=== PATIENT | female | born 1980 | race Native Hawaiian/Other Pacific Islander ===

== ENCOUNTER 2017-06-30 16:44 | Emergency (ER) | payer OTHER ==
[~2017-06-30] VITALS: Ht 175.3 cm; Wt 127.0 kg
[2017-06-30 16:48] VITALS: TEMP 98
[2017-06-30 17:25] LABS: PLATELET COUNT 306 K/uL (152-353)
[2017-06-30 17:36] LABS: POTASSIUM 3.9 mmol/L (3.6-5.2); SODIUM 134 mmol/L (136-145)
[2017-06-30 20:27] VITALS: BP 150/93
== END 2017-06-30 20:44 | disposition home or self-care (01) ==
LOC: ED 16:44
DX: R10.84 Generalized abdominal pain (principal)
CPT/HCPCS: 36415; 80053; 81000; 85027; 96374; 96375; 99284; J1885; J2405; Q9963

== ENCOUNTER 2017-10-19 17:31 | Emergency (ER) | payer OTHER ==
[~2017-10-19] VITALS: Ht 175.3 cm; Wt 133.8 kg
[2017-10-19 18:46] LABS: PLATELET COUNT 314 K/uL (152-353)
[2017-10-19 20:10] VITALS: BP 154/92; TEMP 98.3
== END 2017-10-19 20:20 | disposition home or self-care (01) ==
LOC: ED 17:31
DX: J20.8 Acute bronchitis due to other specified organisms (principal)
CPT/HCPCS: 36415; 85027; 96372; 99283; J1885

== ENCOUNTER 2018-11-04 12:52 | Outpatient (CLI) | payer BC | END 2018-11-04 20:21 | disposition home or self-care (01) | LOC: RAD 12:52 | DX: S97.81XA Crushing injury of right foot, initial encounter (principal) ==

== ENCOUNTER 2018-12-21 11:27 | Outpatient (CLI) | payer BC | END 2018-12-21 23:15 | disposition home or self-care (01) | LOC: RAD 11:27 | DX: M25.571 Pain in right ankle and joints of right foot (principal) ==

== ENCOUNTER 2019-01-27 09:35 | Outpatient (CLI) | payer BC | END 2019-01-27 23:48 | disposition home or self-care (01) | LOC: MRI 09:35 | DX: S97.81XD Crushing injury of right foot, subsequent encounter (principal) ==

== ENCOUNTER 2019-03-08 09:51 | Outpatient (CLI) | payer BC | END 2019-03-08 23:26 | disposition home or self-care (01) | LOC: RAD 09:51 | DX: T18.9XXA Foreign body of alimentary tract, part unspecified, initial encounter (principal) ==

== ENCOUNTER 2019-07-25 11:42 | Outpatient (CLI) | payer BC | END 2019-07-25 20:49 | disposition home or self-care (01) | LOC: RAD 11:42 | DX: M54.2 Cervicalgia (principal) ==

== ENCOUNTER 2020-03-06 14:00 | Observation (INO) | payer BC ==
[~2020-03-06] VITALS: Ht 175.3 cm; Wt 141.1 kg
[2020-03-06] VITALS (10 sets, daily range): BP systolic 120–170; BP diastolic 57–93; TEMP 97.7–98.7
[2020-03-06 15:00] LABS: PLATELET COUNT 320 K/uL (152-353)
[2020-03-06 15:07] LABS: POTASSIUM 3.8 mmol/L (3.6-5.2); SODIUM 142 mmol/L (136-145)
[2020-03-06 17:42] LABS: PARTIAL THROMBOPLASTIN TIME 27.1 SECONDS (24.5-33.6)
[2020-03-07 02:52] VITALS: BP 127/57; TEMP 98.8; Ht 175.3 cm; Wt 141.1 kg
[2020-03-07 04:00] VITALS: BP 118/69; TEMP 97.8
[2020-03-07 08:00] VITALS: BP 115/64; TEMP 98.1
[2020-03-07 12:00] VITALS: BP 118/48; TEMP 98
[2020-03-07 16:00] VITALS: BP 114/64; TEMP 97.9
== END 2020-03-07 18:15 | disposition home or self-care (01) ==
LOC: ED 14:00 → MED/SURG 17:05
PROVIDERS: ADMIT Family Medicine
DX: R07.89 Other chest pain (principal); K22.4 Dyskinesia of esophagus; M94.0 Chondrocostal junction syndrome [Tietze]; K21.9 Gastro-esophageal reflux disease without esophagitis; E66.8 Other obesity
CPT/HCPCS: 36415; 80053; 82550; 82728; 84484; 85027; 85379; 85610; 85730; 87635; 93005; 96360; 96365; 96366; 96367; 96372; 99220; 99284; G0378; G2023; J1650; J1885; J2550; U00003

== ENCOUNTER 2020-03-19 08:05 | Outpatient (CLI) | payer BC | END 2020-03-19 23:59 | disposition home or self-care (01) | LOC: NM 08:05 | DX: R07.9 Chest pain, unspecified (principal) | CPT/HCPCS: A9500 ==

== ENCOUNTER 2020-04-11 08:07 | Outpatient (CLI) | payer BC | END 2020-04-11 21:25 | disposition home or self-care (01) | LOC: RESP 08:07 | DX: R00.2 Palpitations (principal); R07.9 Chest pain, unspecified | CPT/HCPCS: 93225 ==

== ENCOUNTER 2020-05-02 09:23 | Outpatient (CLI) | payer BC | END 2020-05-02 23:20 | disposition home or self-care (01) | LOC: RAD 09:23 | DX: M76.62 Achilles tendinitis, left leg (principal) ==

== ENCOUNTER 2020-05-11 09:44 | Outpatient (CLI) | payer BC ==
[2020-05-11 09:58] LABS: PLATELET COUNT 315 K/uL (152-353)
== END 2020-05-11 23:27 | disposition home or self-care (01) ==
LOC: LABW 09:44
PROVIDERS: Specialist
DX: Z01.810 Encounter for preprocedural cardiovascular examination (principal); R93.1 Abnormal findings on diagnostic imaging of heart and coronary circulation
CPT/HCPCS: 36415; 80053; 85027

== ENCOUNTER 2020-12-19 09:04 | Outpatient (CLI) | payer BC | END 2020-12-19 21:49 | disposition home or self-care (01) | LOC: MRI 09:04 | PROVIDERS: ATTEND Nurse Practitioner Family | DX: M47.892 Other spondylosis, cervical region (principal); G44.52 New daily persistent headache (NDPH) ==

== ENCOUNTER 2021-05-28 10:03 | Outpatient (CLI) | payer BC | END 2021-05-28 19:26 | disposition home or self-care (01) | LOC: RAD 10:03 | PROVIDERS: ATTEND Nurse Practitioner Family | DX: M54.12 Radiculopathy, cervical region (principal) ==

== ENCOUNTER 2022-01-10 09:09 | Outpatient (CLI) | payer BC | END 2022-01-10 18:54 | disposition home or self-care (01) | LOC: RAD 09:09 | PROVIDERS: ATTEND Orthopaedic Surgery | DX: M25.571 Pain in right ankle and joints of right foot (principal) ==

== ENCOUNTER 2022-07-21 10:56 | Outpatient (CLI) | payer OTHER, BC | END 2022-07-21 19:37 | disposition home or self-care (01) | LOC: US 10:56 | PROVIDERS: ATTEND Nurse Practitioner Primary Care | DX: N93.9 Abnormal uterine and vaginal bleeding, unspecified (principal) ==

== ENCOUNTER 2022-08-13 12:38 | Emergency (ER) | payer OTHER, BC ==
[~2022-08-13] VITALS: Ht 175.3 cm; Wt 126.6 kg
[2022-08-13 12:58] VITALS: TEMP 99.2
[2022-08-13 13:27] LABS: PLATELET COUNT 456 K/uL (152-353)
[2022-08-13 13:35] LABS: POTASSIUM 3.6 mmol/L (3.6-5.2)
[2022-08-13 16:10] VITALS: BP 125/80
== END 2022-08-13 16:13 | disposition short-term general hospital (02) ==
LOC: ED 12:38
PROVIDERS: Emergency Medicine Emergency Medical Services
DX: K56.690 Other partial intestinal obstruction (principal)
CPT/HCPCS: 36415; 80053; 81000; 81025; 82150; 82272; 83690; 85027; 87015; 87040; 87045; 87086; 87088; 87324; 87449; 87899; 96360; 96365; 96375; 99285; J0696; J2270; J2405; J3490; Q9963

== ENCOUNTER 2022-11-18 12:13 | Outpatient (CLI) | payer OTHER, BC ==
[~2022-11-18] VITALS: Ht 175.3 cm; Wt 122.0 kg
[2022-11-18 12:30] VITALS: BP 121/78; TEMP 97.7
== END 2022-11-18 19:21 | disposition home or self-care (01) ==
LOC: INF 12:13
PROVIDERS: ATTEND Family Medicine
DX: E86.0 Dehydration (principal)
CPT/HCPCS: 96360

== ENCOUNTER → 2022-11-20 | Outpatient (CLI) | payer OTHER, BC ==
[~2022-11-20] VITALS: Ht 175.3 cm; Wt 122.0 kg
[2022-11-20 14:15] VITALS: BP 120/76; TEMP 98.2
== END ==
LOC: INF 14:09
PROVIDERS: ATTEND Family Medicine
DX: E86.0 Dehydration (principal)
CPT/HCPCS: 96360; 96361